=== PATIENT | female | born 1980 | race Caucasian/White ===

== ENCOUNTER 2020-04-05 09:53 | Outpatient (CLI) | payer BC, SELFPAY ==
--- NOTE | 2020-04-05 10:16 | FL_ITS ---
WS: [id number] UPPER GI WITH AIR TECHNICAL: Double contrast upper GI with thin and thick barium. Effervescent agent utilized. FLUOROSCOPY TIME: 2.5 minutes CLINICAL INFORMATION: MORBID OBESITY COMPARISON: None. FINDINGS: Cholecystectomy clips. Mild lumbar curve convex right. Swallowing: Normal. Esophagus: Normal caliber and motility. Gastroesophageal reflux: Present in the upright and supine positions into the distal esophagus. No si gnificant hiatal hernia. Stomach: Double contrast stomach is normal in appearance. Duodenum: Normal proximal duodenum and duodenal bulb. Other findings: None. FL/FL upper GI w air* [id number] IMPRESSION: 1. Active reflux is visualized into the distal esophagus on the upright and rain [place] imaging. No significant hiatal hernia. 2. Double contrast stomach and proximal duodenum are normal in appearance. 3. Normal esophageal motility.
--- NOTE | 2020-04-05 10:17 | XR_ITS ---
WS: [id number] XR chest 2V* [id number] REASON FOR EXAM: MORBID OBESTIY FINDINGS: The heart was normal. The lung li are well aerated. No pneumonia, pleural effusion, no mass effect. Hilum and apices normal. No osseous abnormalities. XR/XR chest 2V* [id number] IMPRESSION: Negative chest.
--- NOTE | 2020-04-05 11:40 | ECG_ITS ---
Measurements Intervals [place] Rate: 87 P: 63 [place]: 167 QRS: 57 QRSD: 95 T: 51 QT: 357 QTc: 431 SINUS RHYTHM LOW QRS VOLTAGE IN PRECORDIAL LEADS [QRS DEFLECTION < 1.0 mV IN CHEST LEADS] Compared to ECG 10/14/2017 11:53:24 Low QRS voltage now present Electronically Signed On 04-05-2020 14:16:01 CDT by Valentina Rodriguez M.D. [email or web address]
[2020-04-05 11:50] LABS: Free T4 Free Thyroxine 1.02 ng/dL (0.82-1.77); T3 Free 3.1 PG/ML (2.0-4.4)
[2020-04-05 11:51] LABS: Add Urine Culture? Yes; Add Urine Microscopic? YES; Bacteria Urine 1+; Bilirubin Urine Neg (NEGATIVE); Blood Urine Neg (Negative); Glucose Urine UA Norm (Normal); Ketones Urine Negative (Negative); Leukocyte Esterase Urine Trace (Negative); Nitrate Urine Negative (Negative); Protein Urine Neg (Negative); RBC Urine RARE /hpf (0-2); Specific Gravity, Urine 1.005 (1.005-1.030); Urine Appearance Cloudy (CLEAR); Urine Color Yellow (Yellow); Urobilinogen Urine Norm (Negative); WBC Urine 25-40 /hpf (0-5)
[2020-04-05 11:57] LABS: Cortisol Random 8.38 mcg/dL (2.47-19.5)
== END 2020-04-05 09:54 | disposition home or self-care (01) ==
LOC: RAD 09:58
PROVIDERS: Family Provider Family Medicine; PCP Family Medicine; Visit Provider Surgery
DX: E66.01 Morbid (severe) obesity due to excess calories (principal); K21.9 Gastro-esophageal reflux disease without esophagitis
CPT/HCPCS: 36415; 71046; 74246; 81001; 82533; 84439; 84481; 93005

== ENCOUNTER 2020-04-10 08:02 | Outpatient (CLI) | payer BC, SELFPAY | END 2020-04-10 08:03 | disposition home or self-care (01) | LOC: LAB 08:06 | PROVIDERS: Family Provider Family Medicine; PCP Family Medicine; Visit Provider Surgery | DX: E66.01 Morbid (severe) obesity due to excess calories (principal) | CPT/HCPCS: 87338 ==

== ENCOUNTER → 2020-04-11 16:22 | Outpatient (BNVA) | payer BC, SELFPAY | PROVIDERS: Family Provider Family Medicine; PCP Family Medicine; Visit Provider Obstetrics & Gynecology | DX: R87.619 Unspecified abnormal cytological findings in specimens from cervix uteri (principal); Z01.411 Encounter for gynecological examination (general) (routine) with abnormal findings; L29.2 Pruritus vulvae; Z12.39 Encounter for other screening for malignant neoplasm of breast | CPT/HCPCS: 88175 ==

== ENCOUNTER → 2020-04-25 12:27 | Outpatient (BNVA) | payer BC, SELFPAY | PROVIDERS: Family Provider Family Medicine; PCP Family Medicine; Visit Provider Obstetrics & Gynecology | DX: R87.610 Atypical squamous cells of undetermined significance on cytologic smear of cervix (ASC-US) (principal); R87.810 Cervical high risk human papillomavirus (HPV) DNA test positive | CPT/HCPCS: 88305 ==

== ENCOUNTER 2020-05-04 10:32 | Outpatient (CLI) | payer BC, SELFPAY ==
[2020-05-04 10:42] LABS: Add Urine Microscopic? NO
[2020-05-04 10:54] LABS: Bilirubin Urine Neg (NEGATIVE); Blood Urine Neg (Negative); Glucose Urine UA Norm (Normal); Ketones Urine Negative (Negative); Leukocyte Esterase Urine Negative (Negative); Nitrate Urine Negative (Negative); Protein Urine Neg (Negative); Urine Appearance Clear (CLEAR); Urine Color Yellow (Yellow); Urobilinogen Urine Norm (Negative)
== END 2020-05-04 10:33 | disposition home or self-care (01) ==
LOC: LAB 10:36
PROVIDERS: Family Provider Family Medicine; PCP Family Medicine; Visit Provider Registered Nurse
DX: N39.41 Urge incontinence (principal)
CPT/HCPCS: 81003

== ENCOUNTER → 2020-05-09 12:45 | Outpatient (BNVA) | payer BC, SELFPAY | PROVIDERS: Family Provider Family Medicine; PCP Family Medicine; Visit Provider Obstetrics & Gynecology | DX: L29.2 Pruritus vulvae (principal) | CPT/HCPCS: 88305 ==

== ENCOUNTER 2020-11-15 08:00 | Outpatient (CLI) | payer BC, SELFPAY ==
--- NOTE | 2020-11-15 08:00 | MM_ITS ---
WS: [id number] Bilateral screening digital mammogram, 11/15/2020 Clinical Data: screening Comparison: None. Findings: The breast parenchymal pattern shows fibroglandular tissue No spiculated masses or clustered calcific ations are seen. There are no secondary signs of carcinoma. There are lymph nodes in both axilla. MM/[place] [id number] Impression: 1. Negative bilateral mammogram unchanged. 2. Recommend annual screening mammograms. BIRADS: 1-Negative FOLLOW UP: 1 Year Follow-up The CAD bag checker was used.
== END 2020-11-15 08:01 | disposition home or self-care (01) ==
LOC: RADSHAW 08:04
PROVIDERS: PCP Registered Nurse; Visit Provider Obstetrics & Gynecology
DX: Z12.31 Encounter for screening mammogram for malignant neoplasm of breast (principal)
CPT/HCPCS: 77067

== ENCOUNTER 2021-07-07 10:10 | Emergency (ER) | payer OTHER, SELFPAY ==
[2021-07-07 10:25] VITALS: BP 140/57; PULSE 77; RESP 15; TEMP 36.6; O2SAT 98; BMI 30.9
--- NOTE | 2021-07-07 10:27 | XRR_ITS ---
PROCEDURE INFORMATION: Exam: XR Chest Exam date and time: 07/07/2021 10:27 AM Age: 41 years old Clinical indication: Shortness of breath; Additional info: Yen sheppard TECHNIQUE: Imaging protocol: XR of the chest. Views: 1 view. COMPARISON: CR XR chest 2V* [id number] 04/05/2020 10:31 AM FINDINGS: Lungs: Unremarkable. No consolidation. Pleural spaces: Unremarkable. No pleural effusion. No pneumothorax. Heart/Mediastinum: Unremarkable. No cardiomegaly. Bones/joints: No acute abnormality. XR/XR chest 1V portable [id number] IMPRESSION: No acute findings. Unchanged exam.
--- NOTE | 2021-07-07 10:36 | ED_ITS ---
HPI - General Adult General: Chief complaint: COVID symptoms Stated complaint: N/V/D/BODY ACHES Time Seen by Provider: 07/07/21 10:15 History of Present Illness: HPI narrative: CC: Shortness of breath, fever and generalized weakness HPI: This is a [41] yo patient w/ hx of HTN, DM, gastric bypsass presenting to the ED with malaise, generalized weakness, cough sputum production, and fever at home x 4 days. Since onset of symptoms, has had some shortness of breath and decreased PO intake. NO recent travel. and son tested positive for covid this week. +loss of taste and smell. Denies chest pain, N/V, diaphoresis, exertional shortness of breath, GI or other complaints. Denies any pleuritic chest pain, recent surgery/immobilization/travel, or hematemesis or hx of VTE in the past. Onset: 4 days ago Duration: ongoing for the last 4 days Location: home Severity: moderate Review of Systems Narrative: Constitutional: +subjective fever, +generalized weakness HEENT: No vision changes CV: No chest pain, no palpitations PULM: []cough, +dyspnea. GI: No abdominal pain, no N/V/D. : No dysuria MSKEL: No muscle pain SKIN: No new rashes, no lesions. NEURO: No headache, no focal weakness. HEME: No visible bruises PSYCH: Normal mood PFSH ED PFSH: Medical History (Updated 07/07/21 @ 11:37 by Cooper Partida MD) Diabetes mellitus Diagnosed in 2013 and she is on metformin. Hemoglobin A1c done in January 2020 was 8.6. GERD (gastroesophageal reflux disease) Controlled with omeprazole. Has not had an endoscopy Hypertension Diagnosed in 2013 and has been on medication. She lost about 50 pounds in 2018 and was taken off blood pressure medication and has not had to restart this medicine. It is being managed by her primary care provider Mica Olmedo No pertinent past medical history Denies seizures, asthma, DVT/PE. PMD: Mica Olmedo Psoriasis Has skin lesions of psoriasis and denies any arthritis or systemic problems with this. Is being followed by Dr. Maradiaga in [place] and is on Tremfya every 8 weeks. Surgical History (Updated 10/29/20 @ 17:55 by Jenifer Henao MD) H/O gastric bypass 07/05/2020---patient had laparoscopic/robotic gastric bypass performed in [place]. Denies any problems. History of arthroscopic knee surgery S/P cholecystectomy Laparoscopic procedure performed by Dr. Dumont at [facility] on 03/03/2019 S/P dilation and curettage Done by Dr. Rosado for infertility. A laparoscopy was attempted however they were unable to gain intraperitoneal access and so that is only a single umbilical scar---2010 S/P tonsillectomy Done in 1998 S/P tubal ligation laparoscopic bilateral total salpingectomy for sterilization and removal of Mirena IUD on 10/15/2017. Performed by Dr. White at [facility]. Pathology showed complete transection and normal morphology bilaterally. Family History Mother Thyroid condition Father Thyroid condition Grandfather Heart disease Maternal Denies family history of Cervical cancer Colon cancer Ovarian cancer Diabetes DVT (deep venous thrombosis) Hyperlipidemia Breast cancer Pulmonary embolism Hypertension Stroke Social History Smoking and tobacco status: former smoker Additional social history: - Tobacco Use: Used to smoke half a pack of cigarettes a day from the age of 19 until the age of 32. Stop smoking at that time. 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 No focal motor deficits. PSYCH: Normal mood and affect. Course Vital Signs: Vital signs: Vital Signs Temperature 97.9 F 07/07/21 10:25 Pulse Rate 61 07/07/21 10:57 Respiratory Rate 15 07/07/21 10:25 Blood Pressure 140/57 07/07/21 10:57 Pulse Oximetry 99 07/07/21 10:59 MDM - General Adult MDM Narrative: Medical decision making narrative: [41]yo patient presenting to the ED with shortness of breath, cough, and malaise concerning for pneumonia with findings of fever, decreased/junky breath sounds, and tachypnea. Workup today includes XR chest Defer lab work at this time given that the patient is well appearing with stable vital signs and without recent hospitalization or care facility stay. Given History, Exam, and Workup presentation most consistent with pneumonia.Presentation not consistent with PE, COPD exacerbation, Pneumothorax, TB, Atypical ACS, Esophageal Rupture, Toxic Exposure, Foreign Body Airway Obstruction. Workup: CXR Chest, COVID antigen/ COVID PCR send out Intervention: Tylenol 1gram, PO challenge, serial reassessment, oxygen [12:00] On reassessment, XR findings of ground-glass opacity. Covid antigen [] today. Findings consistent with viral pneumonia, suspected COVID. Afebrile currently. Patient continues to be in no respiratory distress with sats sats > 95% without requirements of oxygen in the emergency department. I have offered patient monoclonal antibody (MCA) infusion since patient fulfills the following criteria: COVID+, symptom < 10 days, weight > 88lbs, age >12, NOT requiring additional oxygen compared to baseline. In addition, patient has met one or more of the following criteria including following for EUA of BAM: 1. any medical condition or other factor (including race, ethnicity, social/health care access inequality that puts patient at high risk for progression of disease), 2. obesity (BMI > 25), 3. , 4. CKD, 5. DM, 6. Immunocompromise, 7. cardiovascular disease/HTN, 8. Chronic lung disease, 9. SCD, 10. Neurodevelopmental disorder, 11. Chronic medical-related technological dependence (trach/g-tube/home CPAP), disability, and age >= 65. I have discussed with patient the risks, benefits, and alternatives of obtaining MCA infusion from the MCA consent sheets in detail, and patient agrees with plan for infusion. Patient verbalizes understandings of the risks and alternatives to obtaining BAM today. Please refer to consent sheet for BAM treatment. Disposition: BAM infusion and discharge home. I have given patient strict return precautions for any complications relating to BAM therapy Lab Data: Labs: Lab Results 07/07/21 Range/Units 10:51 SARS-CoV-2 Ag (Rap id) Positive H (Negative) Discharge Plan Discharge Patient Disposition: Home Clinical Impression: COVID-19 Condition: Stable Prescriptions: New acetaminophen 500 mg tablet 500 mg PO Q6H PRN (Reason: pain) 5 Days Qty: 24 RF: 0 No Action Tremfya 100 mg/mL auto-injector SUBCUT .every 8 weeks RF: 0 escitalopram oxalate 20 mg tablet 20 mg PO DAILY RF: 0 bupropion HCl 150 mg tablet extended release 24 hr 150 mg PO BID RF: 0 acyclovir 400 mg tablet 400 mg PO BID PRNRF: 0 multivitamin Tablet 1 tab PO DAILY RF: 0 calcium citrate 250 mg calcium tablet 250 mg PO TID RF: 0 clobetasol 0.05 % cream 1 applic TOPICAL .COMPLEX Qty: 30 RF: 11 Discharge Orders: Discharge ED (Routine); Ordered 07/07/21 Ordered By: Cooper Partida Referrals: Mica Olmedo [Primary Care Provider] - Discharge Diet: Regular Discharge Activity: Resume usual activity Patient Instructions: Severe Acute Respiratory Syndrome (SARS) (ED) Activity Restrictions/Additional Instructions: Come back to the ER if your symptoms worsens, have any fever or chills, any new or concerning complaints. Coding Level of Care Code ED [employer] for Leela Cervantes
[2021-07-07 10:57] VITALS: BP 140/57; PULSE 61; O2SAT 99
[2021-07-07 10:59] VITALS: O2SAT 99
[2021-07-07 11:17] LABS: SARS Covid-2 Antigen Positive (Negative)
[2021-07-08 14:07] LABS: Coronavirus Test Green County Detected
--- NOTE | 2021-07-09 07:50 | PC.NURSE ---
MESSAGE LEFT FOR PT TO RETURN CALL FOR COVID RESULTS
== END 2021-07-07 12:03 | disposition home or self-care (01) ==
PROVIDERS: Emergency Provider Emergency Medicine; PCP Registered Nurse
DX: U07.1 COVID-19 (principal); E11.9 Type 2 diabetes mellitus without complications; I10 Essential (primary) hypertension; Z87.891 Personal history of nicotine dependence
CPT/HCPCS: 71045; 87426; 87635; 99283

== ENCOUNTER 2021-07-07 11:58 | Outpatient (CLI) | payer OTHER, SELFPAY ==
[2021-07-07 12:15] VITALS: BP 103/74; PULSE 68; RESP 17; TEMP 36.1; O2SAT 98
[2021-07-07] MEDS: ondansetron 4 MG Tablet PO (12:40)
[2021-07-07 13:00] VITALS: BP 108/67; PULSE 68; RESP 16; TEMP 36.2; O2SAT 98
--- NOTE | 2021-07-07 13:29 | AMB.MCA ---
Patient Information Referred by: ED provider Dr Partida, seen today in ED see ED note for details Symptom onset date: 07/04/21 COVID 19 common symptoms: positive fever(s), cough, fatigue and loss of sense of smell and/or taste Severity: mild Treatment prior to arrival: none [facility] COVID test results: SARS-CoV-2 Antigen (Rapid) Positive (Negative) H 07/07/21 10:51 07/07/21 Nasal/Oral Coronavirus 2019 PCR Pending 07/07/21 10:51 07/07/21 Criteria/Plan Inclusion/Exclusion Criteria age >/= 12 years, weight >/= 40kg /88lbs, symptom onset less than 10 days ago and + direct Sars-Cov-2 test less than 7-10 days ago cardiovascular disease or htn and diabetes not requiring hospitalization, not requiring oxygen (if not chronically on oxygen) and no increase oxygen requirement (if chronically on oxygen) Patient education patient/caregiver received/reviewed fact sheet, Emergency Use Authorization/unapproved drug status discussed with patient/caregiver, alternatives to this treatment discussed with patient/caregiver, risks and benefits of medication reviewed with patient/caregiver, patient/caregiver given opportunity for questions, which were answered and patient/caregiver consents to receiving Monoclonal Antibody Treatment Plan for treatment Meets criteria for Monoclonal Antibody infusion Ordering Monoclonal Antibody infusion for today
[2021-07-07 14:01] VITALS: BP 101/62; PULSE 66; RESP 16; TEMP 36.3
== END 2021-07-07 11:59 | disposition home or self-care (01) ==
PROVIDERS: PCP Registered Nurse; Visit Provider Hospitalist
DX: U07.1 COVID-19 (principal)
CPT/HCPCS: 96365; Q0162

== ENCOUNTER → 2021-07-25 08:51 | Outpatient (BNVA) | payer OTHER, SELFPAY | PROVIDERS: PCP Registered Nurse; Visit Provider Surgery | DX: E46 Unspecified protein-calorie malnutrition (principal); D50.9 Iron deficiency anemia, unspecified; D51.3 Other dietary vitamin B12 deficiency anemia; D52.0 Dietary folate deficiency anemia; E55.9 Vitamin D deficiency, unspecified; E11.9 Type 2 diabetes mellitus without complications; I10 Essential (primary) hypertension; Z71.3 Dietary counseling and surveillance; Z98.84 Bariatric surgery status | CPT/HCPCS: 80053; 82306; 82607; 82746; 83036; 83540; 84425; 84630; 85025 ==

== ENCOUNTER → 2022-01-15 15:40 | Outpatient (BNVA) | payer OTHER, SELFPAY | PROVIDERS: PCP Registered Nurse; Visit Provider Obstetrics & Gynecology | DX: N87.0 Mild cervical dysplasia (principal) | CPT/HCPCS: 87624 ==